=== PATIENT | male | born 1965 | race Caucasian/White ===

== ENCOUNTER → 2019-10-29 13:03 | Outpatient (CLI) | payer BC ==
[2014-09-20 10:51] VITALS: BMI 25.1
--- NOTE | ~2019-10-29 | EC ---
PATIENT:EBONIE BENITEZ DATE OF SERVICE: 10/29/19 SEX: M MEDICAL RECORD: [id number] DATE OF : 63 [facility] AGE OF PATIENT: 53 ADMISSION DATE: 10/29/19 REFERRING PHYSICIAN: INTERPRETING PHYSICIAN: RENY GU MD ECHOCARDIOGRAM REPORT ECHO CHARGES 4 ECHO COMPLETE Date: 10/29/19 CLINICAL DIAGNOSIS: HTN/HEART MURMUR ECHOCARDIOGRAPHIC MEASUREMENTS (adult normal given) AC root (d.<3.7cm) 3.3 cm LV Septum d (<1.2 cm> 1.2 cm Valve Excursion 2.2 cm LV Septum (systole) 1.5 cm Left Atria (s.<4.0cm> 4.1 cm LVPW d(<1.2cm) 1.7 cm RV (d.<2.3cm) 4.2 cm LVPW (sytole) 1.8 cm LV diastole(<5.6CM) 5.2 cm MV E-F(>70mm/sec) cm LV systole 3.6 cm LVOT Diameter 2.4 cm MV exc.(>10mm) 1.5 cm Est.ejection fraction (50-75%) % DOPPLER: LVIT cm/sec A 52.0 cm/sec E 42.0 cm/sec LA cm/sec RVSP 33 mmHg LVOT 99 cm/sec AOP1/2T m/s Asc. Ao 122 cm/sec RVOT 63 cm/sec RA cm/sec PA 128 cm/sec AV Gradient Peak 6.00 mmHg AV Mean 3.72 mmHg AV Area 3.2 cm MV Gradient Peak 2.61 mmHg MV Mean 0.78 mmHg MV Area cm COMMENTS: Cable Placer: 2 MARY COLES Firer Watertender: 3 Dr. Mcelroy TAPE# PACS Pericardial Effusion N DATE OF SERVICE: Adequate 2D, color flow imaging, spectral Doppler, and M-Mode. Mild LVH. LV internal dimension is normal. Wall motion is normal. EF is greater than or equal to 55%. Aortic valve is tricuspid. No evidence of stenosis by Doppler interrogation. Left atrium is upper limits of normal at 4.1 cm. Mitral valve shows no prolapse. Trace MR. Right-sided chambers are grossly normal. Mild TR. ECHOCARDIOGRAM REPORT [id number] EBONIE BENITEZ TRANSINT:[id number] Voice Confirmation ID: [id number] DOCUMENT ID: [id number] RENY GU MD CC: [id number] DICTATION DATE: 10/30/19 1338 SUPERVISOR RIPRAP PLACING: 10/30/19 2245 DEP CLI 10/29/19 [place] [id number]
[~2019-10-29 13:03] MED LIST: BAYER CHEWABLE81 MG PO
== END | disposition home or self-care (01) ==
LOC: D.HCCECHO 13:03
PROVIDERS: ATTEND Internal Medicine Interventional Cardiology
DX: I10 Essential (primary) hypertension (principal); I20.9 Angina pectoris, unspecified